=== PATIENT | female | born 1955 | race Caucasian/White ===

== ENCOUNTER 2019-03-21 12:19 | Emergency (ER) | payer MEDICAID ==
[~2019-03-21] VITALS: Ht 165.1 cm; Wt 73.9 kg
[2019-03-21 12:25] VITALS: BP 148/79
--- NOTE | 2019-03-21 12:38 | NUR ---
PT AMBULATED TO BED
--- NOTE | 2019-03-21 12:55 | NUR ---
BIB FAMILY C/O INCISION SITE PAIN ON UMBILICAL REGION, X2 DAYS, REPORTS NOTICING GREEN DISCHARGE TODAY. SURGERY WAS 2 WEEKS AGO. DENIES FEVER. HX CHOLECYSTECTOMY (WAS 2 WEEKS AGO), DM, HYSTERECTOMY, BL EYE SURGERY. RX METFORMIN, JANUVIA. OTC MOTRIN WITHOUT RELIEF .PATIENT STATES PAIN OF 4/10 AT THIS TIME.PATIENT POSITIONED FOR COMFORT; HOB ELEVATED; BEDRAILS UP X1; BED DOWN. ER MD MADE AWARE OF PT STATUS.
--- NOTE | 2019-03-21 15:05 | NUR ---
Patient discharged with v/s stable. Written and verbal after care instructions given and explained. Patient alert, oriented and verbalized understanding of instructions. Ambulatory with steady gait. All questions addressed prior to discharge. ID band removed. Patient advised to follow up with PMD. Rx of KEFLEX & NORCO given. Patient educated on indication of medication including possible reaction and side effects. Opportunity to ask questions provided and answered.
[2019-03-21 15:06] VITALS: BP 125/72
== END 2019-03-21 15:05 | disposition home or self-care (01) ==
LOC: MED 12:19
DX: T81.40XA Infection following a procedure, unspecified, initial encounter (principal); E11.9 Type 2 diabetes mellitus without complications; I10 Essential (primary) hypertension; Z90.49 Acquired absence of other specified parts of digestive tract; Y83.8 Other surgical procedures as the cause of abnormal reaction of the patient, or of later complication, without mention of misadventure at the time of the procedure; Y92.89 Other specified places as the place of occurrence of the external cause
CPT/HCPCS: 99283

== ENCOUNTER 2023-07-09 13:54 | Emergency (ER) | payer BC, MEDICAID ==
[~2023-07-09] VITALS: Ht 165.1 cm; Wt 72.1 kg
[2023-07-09 14:20] VITALS: BP 129/78; PULSE 76; RESP 16; TEMP 97.2; O2SAT 98
[2023-07-09 17:00] VITALS: BP 124/64; PULSE 77; RESP 16; TEMP 97.6; O2SAT 98
[2023-07-09] MEDS ORDERED: IBUP-2213 PO (17:07)
[2023-07-09] MEDS ORDERED: DICL100G32 TP (17:07)
[2023-07-09] MEDS ORDERED: LID5T TP (17:07)
[2023-07-09] MEDS: KETOROLAC 30 MG/ML VIAL IM ONE (17:17)
[2023-07-09] MEDS: LIDOCAINE 5% 1 EA PATCH TP ONE (17:18)
== END 2023-07-09 17:33 | disposition home or self-care (01) ==
LOC: MED 13:54
DX: S22.42XA Multiple fractures of ribs, left side, initial encounter for closed fracture (principal); S00.83XA Contusion of other part of head, initial encounter; M25.812 Other specified joint disorders, left shoulder; M79.652 Pain in left thigh; E11.9 Type 2 diabetes mellitus without complications; I10 Essential (primary) hypertension; Z90.49 Acquired absence of other specified parts of digestive tract; Z90.710 Acquired absence of both cervix and uterus; Z79.899 Other long term (current) drug therapy; W18.2XXA Fall in (into) shower or empty bathtub, initial encounter; Y92.89 Other specified places as the place of occurrence of the external cause; Y93.89 Activity, other specified; Y99.8 Other external cause status
CPT/HCPCS: 71101; 73030; 73060; 96372; 99284; J1885